=== PATIENT | male | born 1975 | race Caucasian/White ===

== ENCOUNTER → 2016-10-29 | Outpatient (CLI) | payer OTHER ==
--- NOTE | 2016-10-29 11:48 | RAD ---
Indication chronic knee pain. AP and lateral views of the right knee were obtained. No bony abnormality is seen
--- NOTE | 2016-10-29 13:02 | RAD ---
Indication chronic back pain. AP and lateral views of the lumbar spine were obtained as well as a coned view targeted to the lumbosacral junction. Imaging is somewhat limited by virtue of patient body habitus. Vertebral height alignment and disc spaces appear unremarkable. A focal process is not seen. Significant degenerative changes are not apparent on plain films. No acute finding is apparent. IMPRESSION: No acute or significant bony finding on plain films
== END | disposition home or self-care (01) ==
LOC: RAD 09:54
PROVIDERS: ATTEND Surgery
DX: M54.9 Dorsalgia, unspecified (principal); M25.561 Pain in right knee; E66.01 Morbid (severe) obesity due to excess calories; G89.29 Other chronic pain
CPT/HCPCS: 72100; 73560

== ENCOUNTER → 2016-12-11 | Outpatient (CLI) | payer OTHER | END | disposition home or self-care (01) | LOC: PF 09:30 | PROVIDERS: ATTEND Surgery | DX: R06.02 Shortness of breath (principal) | CPT/HCPCS: 94060 ==

== ENCOUNTER → 2019-03-04 | Outpatient (CLI) | payer OTHER ==
[~2019-03-04] MED LIST: ALBUTEROL SULFATE 2.5 MG/3 ML NEBU. NEB ONE
== END | disposition home or self-care (01) ==
LOC: PF 07:20
PROVIDERS: ATTEND Surgery
DX: J98.4 Other disorders of lung (principal); R06.02 Shortness of breath; E66.9 Obesity, unspecified
CPT/HCPCS: 94060; 94640; 94729; J7613